=== PATIENT | female | born 1990 | race Caucasian/White ===

== ENCOUNTER → 2020-06-02 14:39 | Outpatient (BNVA) | payer SELFPAY | PROVIDERS: Visit Provider Nurse Practitioner Family | DX: N39.0 Urinary tract infection, site not specified (principal) | CPT/HCPCS: 81000 ==

== ENCOUNTER → 2021-07-03 10:15 | Outpatient (BNVA) | payer MEDICAID, SELFPAY | PROVIDERS: Visit Provider Nurse Practitioner Family | DX: Z32.00 Encounter for pregnancy test, result unknown (principal) | CPT/HCPCS: 81025; 84702 ==